=== PATIENT | female | born 1985 | race Caucasian/White ===

== ENCOUNTER 2018-09-03 10:02 | Inpatient (IN) | payer BC ==
[2018-09-05 05:50] VITALS: BMI 27.4
[2018-09-05] MEDS ORDERED: CARBOPROST TROMETHAMINE 250 MCG/ML 1 ML AMP IM PRN (05:53)
[2018-09-05] MEDS ORDERED: TERBUTALINE 1 MG/ML VIAL SQ PRN (05:53)
[2018-09-05] MEDS ORDERED: OXYTOCIN 10 UNIT/ML 1 ML VIAL IM PRN (05:53)
[2018-09-05] MEDS ORDERED: METHYLERGONOVINE 0.2 MG/ML 1 ML AMP IM PRN (05:53)
[2018-09-05] MEDS ORDERED: LIDOCAINE 0.5% (PF) 5 MG/ML (50 ML SDV) SQ PRN (05:53)
[2018-09-05] MEDS ORDERED: OXYTOCIN 30 UNITS/500 ML NS 30 UNIT in SALINE 1 500ML.BAG IV SCH (06:00)
[2018-09-05] MEDS: LACTATED RINGERS 1,000 ML IV SCH ×2 (06:03→09:34)
--- NOTE | 2018-09-05 06:16 | P.HPOB ---
History of Present Illness H&P Date: 09/05/18 Chief Complaint: Desires induction of labor This patient is a pleasant 32-year-old 4 para 2 female estimated date of confinement 09/03/2018 estimated gestational age 40-2/7 weeks who presents to labor and delivery for requested induction of labor. care has been uncomplicated. She does have a history of a previous 14 week loss of unknown etiology and 2 previous term vaginal deliveries. Review of Systems Genitourinary: Reports Menstruation: Reports amenorrhea Past Medical History Past Medical History: No Reported History Additional Past Medical History / Comment(s): Patient's had 2 previous term vaginal deliveries and one 14 week demise. History of Any Multi-Drug Resistant Organisms: None Reported Past Surgical History: No Surgical Hx Reported Additional Past Surgical History / Comment(s): Patient has had oral surgery in the past. Past Anesthesia/Blood Transfusion Reactions: No Reported Reaction Past Psychological History: No Psychological Hx Reported Smoking Status: Never smoker Past Alcohol Use History: None Reported Past Drug Use History: None Reported - Past Family History Father Family Medical History: Myocardial Infarction (MS) Medications and Allergies Home Medications Medication Instructions Recorded Confirmed Type 78/Iron/Folate 1/Dha 1 each PO DAILY 09/09/14 09/05/18 History [Prenate Dha Softgel] Allergies Allergy/AdvReac Type Severity Reaction Status Date / Time No Known Allergies Allergy Verified 09/05/18 05:46 Exam Vital Signs Temp Pulse Resp BP 09/05/18 05:47 96.3 F L 83 16 117/71 Intake and Output 09/04/18 09/04/18 09/05/18 14:59 22:59 06:59 Other: Weight 70.307 kg - OBG Physical Exam Abdomen: bowel sounds normal, no diffuse tenderness, no bruit present, no guarding noted, no hepatomegaly, no splenomegaly, no mass Vulva: both: normal Vagina: normal moisture, no discharge Cervix: no lesion (Cervix is 2 cm 50% effaced -2 station.), no discharge Uterus: enlarged (Fundal height 38 cm.) Results blood work shows she is O positive, rubella immune, RPR nonreactive, hepatitis B negative, HIV is nonreactive, ultrasounds have been normal, group B strep was negative, Glucola was 141 with a normal three-hour gtt. Assessment and Plan Assessment: This is a pleasant 32-year-old 4 para 2 female 40-2/7 weeks gestation admitted to labor and delivery for requested elective induction of labor. Plan is induction of labor and anticipate vaginal delivery. (1) Elective induction of labor planned Current Visit: No Status: Acute Code(s): [id number] - SNOMED Code(s): 4056 73830 (2) 40 weeks gestation of Current Visit: Yes Status: Acute Code(s): Z3A.40 - 40 WEEKS GESTATION OF SNOMED Code(s): 10217443
[2018-09-05 06:53] LABS: Basophils % (A) 0 %; Eosinophils # (A) 0.2 k/uL (0-0.7); Eosinophils % (A) 2 %; HCT 36.9 % (34.0-46.0); HGB 12.2 gm/dL (11.4-16.0); Lymphocytes # (A) 1.9 k/uL (1.0-4.8); Lymphocytes % (A) 18 %; MCH 29.4 pg (25.0-35.0); MCHC 33.1 g/dL (31.0-37.0); Mean Platelet Volume 6.5; Monocytes # (A) 0.3 k/uL (0-1.0); Monocytes % (A) 3 %; Neutrophils # (A) 7.8 k/uL (1.3-7.7); Neutrophils % (A) 75 %; Platelet Count 221 k/uL (150-450); RBC 4.15 m/uL (3.80-5.40); RDW 14.1 % (11.5-15.5); WBC 10.4 k/uL (3.8-10.6)
[2018-09-05] MEDS ORDERED: ROPIVACAINE 100 MG, fentaNYL (PF) 200 MCG in SODIUM CHLORIDE 0.9% 76 ML EPIDURAL ONE (10:16)
[2018-09-05] MEDS ORDERED: PROPOFOL 10 MG/ML 20 ML VIAL IV ONE (13:13)
[2018-09-05] MEDS ORDERED: OXYTOCIN 10 UNIT/ML 1 ML VIAL ONE (13:13)
[2018-09-05] MEDS ORDERED: SUCCINYLCHOLINE CHLORIDE 100 MG/5 ML SYR IV ONE (13:13)
[2018-09-05] MEDS ORDERED: fentaNYL (PF) 50 MCG/ML 2 ML AMP ONE (13:13)
[2018-09-05] MEDS ORDERED: ONDANSETRON 4 MG/2 ML VIAL ONE (13:13)
[2018-09-05] MEDS ORDERED: MORPHINE SULFATE (PF) 0.3 MG/0.3 ML SYR ONE (13:13)
[2018-09-05] MEDS ORDERED: diphenhydrAMINE 25 MG CAP PO PRN (13:57)
[2018-09-05] MEDS ORDERED: LANOLIN CREAM 5 GM TUBE TOPICAL PRN (13:57)
[2018-09-05] MEDS ORDERED: diphenhydrAMINE 50 MG/ML 1 ML VIAL IVP PRN (13:57)
[2018-09-05] MEDS ORDERED: ZOLPIDEM 5 MG TAB PO PRN (13:57)
[2018-09-05] MEDS ORDERED: ONDANSETRON 4 MG/2 ML VIAL IVP PRN (13:57)
[2018-09-05] MEDS ORDERED: METOCLOPRAMIDE 5 MG/ML 2 ML VIAL IVP PRN (13:57)
[2018-09-05] MEDS ORDERED: SIMETHICONE 80 MG CHEWABLE PO PRN (13:57)
[2018-09-05] MEDS ORDERED: NALOXONE 0.4 MG/ML 1 ML VIAL IV PRN (13:57)
[2018-09-05] MEDS ORDERED: OXYTOCIN 20 UNITS/1000 ML NS 1,000 ML IV SCH (14:00)
[2018-09-05] MEDS: KETOROLAC 30 MG/ML 1 ML VIAL IVP PRN ×2 (14:24→20:25)
--- NOTE | 2018-09-05 18:03 | P.OP ---
Date of Procedure: 09/05/18 Preoperative Diagnosis: #1: 40-2/7 week . #2: Category 3 heart tones remote from delivery #3: Multi parity desires permanent sterilization Postoperative Diagnosis: Same Procedure(s) Performed: Primary low transverse section and bilateral partial salpingectomy Anesthesia: SANDY Surgeon: Boy Arechiga Human Services Manager #1: Dayana Davey Estimated Blood Loss (ml): 1,000 Pathology: other (Placenta and bilateral fallopian tube segments) Condition: stable Disposition: floor Indications for Procedure: Please see dictated H&P for intimate details of this patient's admission. Brief summary is a pleasant 32-year-old 4 para 2 female 40-2/7 weeks gestation admitted for elective induction of labor due to postdates. Admission patient is 2 centimeters dilated has artificial rupture membranes for clear fluid. Patient's labor is induced with Pitocin per protocol. She does have intermittent variable decelerations throughout the labor process which responded to position changes. Patient gets to approximately 9 cm dilated and does have an episode of bradycardia which again resolves with stopping the Pitocin and position changes. Patient subsequently gets to complete and with every contraction she has bradycardia to the 60s which is prolonged. Patient is taken to the back at that time heart tones returned to approximately 119-120 however with one attempt push heart tones again become bradycardic in the 60s at which time we elected proceed with emergent section. Patient previously discussed that if we needed to this she wished to have a tubal ligation. She understands this is permanent. She also understands risks of surgery. Operative Findings: This was a vigorous viable female Apgars 9 and 9 delivery time is 1324 hrs. Upon entering the uterus infant had a loop of umbilical cord that was directly applied to the head against the uterus consistent with cord compression Description of Procedure: This patient is laid in the supine position. She previously had a Gaytan catheter placed to straight drain. She has abdominal prep and drape. She subsequently undergoes general endotracheal anesthesia without incident. With an adequate level of anesthesia scalpels and taken Pfannenstiel skin incision is then made. Second scalpel is taken down the fascia the fascia scored with a knife. Fascial incision extended bilaterally using the Davis scissors. Fascia is then dissected off the rectus muscles sharply. Rectus muscles are the peritoneum identified and entered sharply. Bladder blade is then placed. Bladder peritoneum taken sharply off the lower uterine segment. Scalpels and taken low transverse uterine incision is then made. Using a hemostat I into the uterine cavity and there is loss of small amount of clear fluid. The uterine incision is extended bluntly. Immediately visualized there is a piece of the umbilical cord directly adjacent to the 's head most likely the cause of the bradycardic episodes. The infant's head is gently guided through the incision and delivered with fundal pressure. Mouth and nares are bulb suctioned. We then have delivery the rest this infant's body. This is a vigorous viable female infant Apgars are 9 and 9 delivery time is 1324 hrs. The umbilical cords doubly clamped and cut and is handed off to the nurses in attendance. Placenta is then manually extracted intact. Uterus is then externalized uterine edges demarcated with Ribeiro clamps. Uterus is bit boggy and the patient is given I the Pitocin. Uterus firms up well. Uterine incision then closed using 0 Vicryl running locked fashion 2 layers. Excellent hemostasis is noted bladder peritoneum was then reapproximated using a 3-0 Vicryl. I then turned my attention to the left fallopian tube approximately 4 cm from the cornual insertion a small window made to the mesial salpinx with Bovie cautery. Using a 2-0 silk I doubly ligated piece the tube and approximately 2 cm segment is excised. Cauterization done the tubal ends and good hemostasis is noted. Similar technique is done on the right side with similar results. With this done excess fluid is removed from the abdomen and pelvis. Uterus placed back into the abdomen. Parietal peritoneum was then closed using 0 Vicryl running fashion. Rectus muscles reapproximated Vicryl interrupted fashion. Fascia is then closed using 0 PDS. Fascial incision is intact and hemostatic. Subcutaneous tissue is then closed using a 3-0 Vicryl. Skin is and closed using deanna. All counts are correct 3. There are no complications. Patient is awakened from anesthesia and taken to her birthing suite in satisfactory condition.
[2018-09-05] MEDS: SENNOSIDES-DOCUSATE SODIUM 1 EACH TAB PO SCH (20:29)
[2018-09-05] MEDS: ceFAZolin IN SWFI 2 GM/20 ML SYRINGE IVP SCH (23:49)
[2018-09-06 03:04] VITALS: RESP 16
[2018-09-06] MEDS: KETOROLAC 30 MG/ML 1 ML VIAL IVP PRN (03:08)
[2018-09-06] MEDS: ceFAZolin IN SWFI 2 GM/20 ML SYRINGE IVP SCH (05:46)
--- NOTE | 2018-09-06 06:33 | P.PNOBGPC ---
Subjective - Subjective Patient reports: Reports appetite normal, Reports voiding normally, Reports pain well controlled, Reports ambulating normally : doing well Objective - Vital Signs Latest vital signs: Vital Signs Temp Pulse Resp BP Pulse Ox 09/06/18 03:03 98.1 F 78 16 102/61 09/05/18 23:52 98.9 F 79 18 116/69 09/05/18 20:03 99.3 F 88 16 115/68 99 09/05/18 15:59 98.2 F 78 18 115/70 100 09/05/18 15:28 72 18 114/66 100 09/05/18 14:59 66 16 136/67 100 09/05/18 14:44 98.0 F 61 16 111/66 09/05/18 14:29 69 16 110/64 100 09/05/18 14:14 96.9 F L 78 16 106/63 100 09/05/18 13:59 96.9 F L 100 16 113/64 Intake and Output 09/05/18 09/05/18 09/06/18 14:59 22:59 06:59 Intake Total 2000 Output Total 700 400 300 Balance 1300 -400 -300 Intake: Intake, IV Titration 2000 Amount Lactated Ringers 1,000 ml 2000 @ 125 mls/hr IV .Q8H [facility] Rx#:[id number] Output: Urine 700 400 300 Uretheral (Gaytan) 400 Other: Voiding Method Indwelling Catheter - Exam Lungs: bilateral: normal Chest: Normal S1, Normal S2 Extremities: Present: normal Abdomen: Present: normal appearance, soft. Absent: distention, tenderness Incision: Present: normal, dry, intact Uterus: Present: normal, firm - Labs Labs: Abnormal Lab Results - Last 24 Hours (Table) 09/05/18 Range/Units 06:40 Neutrophils # 7.8 H (1.3-7.7) k/uL Assessment and Plan Assessment: Postoperative day #1. Patient is resting without complaints. Vital signs are stable she is afebrile. Uterus is firm nontender she's having normal lochia. Her incision is intact and dry. CBC at this time is pending. Plan today is to allow the patient to shower, advanced to a regular diet, check a CBC, continue routine postoperative care. (1) Elective induction of labor planned Current Visit: No Status: Acute Code(s): [id number] - SNOMED Code(s): 670239704 (2) 40 weeks gestation of Current Visit: Yes Status: Acute Code(s): Z3A.40 - 40 WEEKS GESTATION OF SNOMED Code(s): 77850692
[2018-09-06 06:54] LABS: Basophils % (A) 0 %; Eosinophils # (A) 0.3 k/uL (0-0.7); Eosinophils % (A) 2 %; HCT 30.2 % (34.0-46.0); Lymphocytes # (A) 1.5 k/uL (1.0-4.8); Lymphocytes % (A) 14 %; MCH 28.7 pg (25.0-35.0); Mean Platelet Volume 7.5; Monocytes # (A) 0.4 k/uL (0-1.0); Monocytes % (A) 3 %; Neutrophils # (A) 8.4 k/uL (1.3-7.7); Neutrophils % (A) 79 %; Platelet Count 201 k/uL (150-450); RBC 3.47 m/uL (3.80-5.40); RDW 14.3 % (11.5-15.5); WBC 10.7 k/uL (3.8-10.6)
[2018-09-06] MEDS: SENNOSIDES-DOCUSATE SODIUM 1 EACH TAB PO SCH ×2 (08:38→19:54)
[2018-09-06] MEDS: IBUPROFEN 600 MG TAB PO PRN ×2 (09:52→16:25)
[2018-09-06] MEDS: ACETAMINOPHEN TAB 325 MG TAB PO PRN ×2 (13:36→19:49)
[2018-09-06] MEDS: LACTATED RINGERS 1,000 ML IV SCH ×2 (20:53→20:54)
[2018-09-07] MEDS: HYDROcodone/APAP 5-325MG 1 EACH TAB PO PRN ×2 (00:06→14:30)
--- NOTE | 2018-09-07 06:20 | P.PNOBGPC ---
Subjective - Subjective Patient reports: Reports appetite normal, Reports voiding normally, Reports pain well controlled, Reports ambulating normally : doing well Objective - Vital Signs Latest vital signs: Vital Signs Temp Pulse Resp BP 09/07/18 00:00 97.6 F 70 16 116/78 09/06/18 16:00 97.6 F 76 16 115/68 09/06/18 11:41 98.0 F 77 16 112/67 09/06/18 08:00 98.1 F 80 16 103/64 Intake and Output 09/06/18 09/06/18 09/07/18 14:59 22:59 06:59 Output Total 500 Balance -500 Output: Urine 500 - Exam Lungs: bilateral: normal Chest: Normal S1, Normal S2 Extremities: Present: normal Abdomen: Present: normal appearance, soft. Absent: distention, tenderness Incision: Present: normal, dry, intact Uterus: Present: normal, firm - Labs Labs: Abnormal Lab Results - Last 24 Hours (Table) 09/06/18 Range/Units 06:40 WBC 10.7 H (3.8-10.6) k/uL RBC 3.47 L (3.80-5.40) m/uL Hgb 10.0 L D (11.4-16.0) gm/dL Hct 30.2 L (34.0-46.0) % Neutrophils # 8.4 H (1.3-7.7) k/uL Assessment and Plan Assessment: Postoperative day #2. Patient is resting without complaints and wishes to go home. Vital signs are stable she is afebrile. CBC yesterday was normal. Patient is ambulating and urinating without difficulty. Patient's felt be stable for discharge home later today. (1) Elective induction of labor planned Current Visit: No Status: Acute Code(s): [id number] - SNOMED Code(s): 436820870 (2) 40 weeks gestation of Current Visit: Yes Status: Acute Code(s): Z3A.40 - 40 WEEKS GESTATION OF SNOMED Code(s): 95167191
--- NOTE | 2018-09-07 06:26 | P.DS ---
Providers Date of admission: 09/05/18 05:35 Expected date of discharge: 09/07/18 Attending physician: Boy Arechiga Primary care physician: Stated None - Discharge Diagnosis(es) (1) Elective induction of labor planned Current Visit: No Status: Acute (2) 40 weeks gestation of Current Visit: Yes Status: Acute Hospital Course: Please see dictated H&P for intimate details of this patient's admission. Brief summary this is a pleasant 32-year-old 4 para 2 female 40-2/7 weeks gestation admitted to labor and delivery for elective induction of labor. Patient had a induction of labor and subsequently had a primary section for nonreassuring heart tones. Please see dictated operative note. Postoperative Day #2 patient's felt be stable for discharge home follow up with me in 1 week. Procedures: Induction of labor and primary low transverse section with bilateral partial salpingectomy Patient Condition at Discharge: Good Plan - Discharge Summary New Discharge Prescriptions: New Ibuprofen [Motrin] 600 mg PO Q6HR PRN #40 tab PRN Reason: Mild Pain Or Fever >= 100.5 HYDROcodone/APAP 5-325MG [[place] 5-325] 1 each PO Q4HR PRN #18 tab PRN Reason: Moderate Pain No Action 78/Iron/Folate 1/Dha [Prenate Dha Softgel] 1 each PO DAILY Discharge Medication List 78/Iron/Folate 1/Dha [Prenate Dha Softgel] 1 each PO DAILY 09/09/14 [History] HYDROcodone/APAP 5-325MG [[place] 5-325] 1 each PO Q4HR PRN #18 tab 09/07/18 [Rx] Ibuprofen [Motrin] 600 mg PO Q6HR PRN #40 tab 09/07/18 [Rx] Follow up Appointment(s)/Referral(s): Boy Arechiga MD [STAFF PHYSICIAN] - 10/20/18 10:45 am (Also see me in 1 week for an incision check please as scheduled.) Patient Instructions/Handouts: (DC) Activity/Diet/Wound Care/Special Instructions: No strenuous activity or heavy lifting for 6 weeks. No intercourse or anything per vagina for 6 weeks. Please call if any fever, chills, excessive vaginal bleeding, and/or abdominal pain. Discharge Disposition: HOME SELF-CARE
[2018-09-07] MEDS: IBUPROFEN 600 MG TAB PO PRN (08:00)
[2018-09-07] MEDS: SENNOSIDES-DOCUSATE SODIUM 1 EACH TAB PO SCH (08:00)
[2018-09-07 09:57] VITALS: BP 111/70; PULSE 75; TEMP 97.7
== END 2018-09-07 15:55 | disposition home or self-care (01) | DRG 785 ==
LOC: 4FBP 09-05 05:35
PROVIDERS: ADMIT Obstetrics & Gynecology; ATTEND Obstetrics & Gynecology
PROC: 0UB70ZZ Excision of Bilateral Fallopian Tubes, Open Approach (ICD-10-PCS; 2018-09-05)
PROC: 10907ZC Drainage of Amniotic Fluid, Therapeutic from Products of Conception, Via Natural or Artificial Opening (ICD-10-PCS; 2018-09-05)
PROC: 3E033VJ Introduction of Other Hormone into Peripheral Vein, Percutaneous Approach (ICD-10-PCS; 2018-09-05)
PROC: 10D00Z1 Extraction of Products of Conception, Low, Open Approach (ICD-10-PCS; principal; 2018-09-05 13:13)
DX: O48.0 Post-term pregnancy (principal); O76 Abnormality in fetal heart rate and rhythm complicating labor and delivery; Z37.0 Single live birth; Z3A.40 40 weeks gestation of pregnancy; Z82.49 Family history of ischemic heart disease and other diseases of the circulatory system
CPT/HCPCS: 85025; 86850; 86900; 86901; 88302; 88307